=== PATIENT | female | born 1945 | race Caucasian/White ===

== ENCOUNTER → 2018-10-17 | Outpatient (CLI) | payer MEDICARE ==
[2018-10-17 16:47] LABS: ABSOLUTE BASOPHILS # (AUTO) 0.1 10^3/uL (0.0-0.2); ABSOLUTE EOSINOPHILS # (AUTO) 0.1 10^3/uL (0.0-0.6); ABSOLUTE MONOCYTES (AUTO) 0.4 10^3/uL (0.1-1.4); ABSOLUTE NEUT (AUTO) 3.1 10^3/uL (1.7-8.2); BASOPHILS % (AUTO) 1.2 % (0-2); EOSINOPHILS % (AUTO) 2.6 % (0-6); HEMATOCRIT 40.2 % (36.0-47.0); HEMOGLOBIN 13.7 g/dL (12.0-15.5); LYMPHOCYTES % (AUTO) 21.5 % (13-45); MEAN CORPUSCULAR HEMOGLOBIN 27.6 pg (27.0-33.4); MEAN CORPUSCULAR HGB CONC 34.1 g/dL (32.0-36.0); MEAN CORPUSCULAR VOLUME 81 fl (80-97); MONOCYTES % (AUTO) 7.6 % (3-13); PLATELET COUNT 132 10^3/uL (150-450); RED BLOOD COUNT 4.97 10^6/uL (3.72-5.28); RED CELL DISTRIBUTION WIDTH 14.4 % (11.5-14.0); SEGMENTED NEUTROPHILS % (AUTO) 67.1 % (42-78); TOTAL CELLS COUNTED % (AUTO) 100 %; WHITE BLOOD COUNT 4.7 10^3/uL (4.0-10.5)
--- NOTE | 2018-10-17 17:10 | RADIOLOGY REPORT (SQ) ---
EXAM DESCRIPTION: CHEST PA/LATERAL COMPLETED DATE/TIME: 10/17/2018 4:05 pm REASON FOR STUDY: PRE-OP COMPARISON: None. EXAM PARAMETERS: NUMBER OF VIEWS: two views TECHNIQUE: Digital Frontal and Lateral radiographic views of the chest acquired. RADIATION DOSE: NA LIMITATIONS: none FINDINGS: LUNGS AND PLEURA: No opacities, masses or pneumothorax. No pleural effusion. MEDIASTINUM AND HILAR STRUCTURES: No masses or contour abnormalities. HEART AND VASCULAR STRUCTURES: Borderline cardiomegaly BONES: No acute findings. HARDWARE: None in the chest. OTHER: No other significant finding. IMPRESSION: NO SIGNIFICANT RADIOGRAPHIC FINDING IN THE CHEST. TECHNICAL DOCUMENTATION: JOB ID: [id number] [employer]- All Rights Reserved Reading location - IP/workstation name: [email or web address]
[2018-10-17 17:14] LABS: ANION GAP 5 (5-19); BLOOD UREA NITROGEN 23 mg/dL (7-20); CALCIUM 8.9 mg/dL (8.4-10.2); CARBON DIOXIDE 35 mmol/L (22-30); CHLORIDE 101 mmol/L (98-107); GLUCOSE 95 mg/dL (75-110); POTASSIUM 3.8 mmol/L (3.6-5.0); SODIUM 141.2 mmol/L (137-145)
--- NOTE | 2018-10-17 18:40 | EKG REPORT ---
SEVERITY:- ABNORMAL ECG - SINUS RHYTHM ATRIAL PREMATURE COMPLEX RBBB AND LAFB LEFT VENTRICULAR HYPERTROPHY : Confirmed by: Eduardo Mora MD 17-Oct-2018 18:40:40
[2018-10-18 11:57] LABS: APPEARANCE,URINE SLIGHTLY-CLOUDY; BILIRUBIN,URINE NEGATIVE (NEGATIVE); COLOR,URINE YELLOW; GLUCOSE, URINE NEGATIVE (NEGATIVE); KETONES,URINE NEGATIVE (NEGATIVE); LEUKOCYTE ESTERASE,URINE MODERATE (NEGATIVE); NITRITE,URINE NEGATIVE (NEGATIVE); PROTEIN,URINE NEGATIVE (NEGATIVE); URINE SPECIFIC GRAVITY 1.026; UROBILINOGEN,URINE NEGATIVE mg/dL (<2.0)
== END ==
LOC: OD 15:13
PROVIDERS: ATTEND Orthopaedic Surgery
DX: Z01.810 Encounter for preprocedural cardiovascular examination (principal); Z01.811 Encounter for preprocedural respiratory examination; Z01.812 Encounter for preprocedural laboratory examination; M17.11 Unilateral primary osteoarthritis, right knee
CPT/HCPCS: 36415; 71046; 80048; 81001; 85025; 93005; 93010

== ENCOUNTER 2018-11-14 09:37 | Inpatient (IN) | payer MEDICARE ==
[2018-11-28] MEDS ORDERED: LIDOCAINE 0.5% INJ-PF (5 MG/ML) 50 ML SDV SUBCUT PRN (05:00)
[2018-11-28] MEDS ORDERED: OXYCODONE HCL SR 10 MG TABLET PO PRN (05:00)
[2018-11-28] MEDS ORDERED: IBUPROFEN 800 MG in NORMAL SALINE 250 ML IV PRN (05:00)
[2018-11-28] MEDS ORDERED: BUPIVACAINE INJ/PF LIPOSOME/PF 266 MG/20 ML SDV INJ PRN (05:00)
[2018-11-28] MEDS ORDERED: CLINDAMYCIN 600 MG/D5W RTU 600 MG/50 ML RTUPB IV PRN (05:00)
[2018-11-28] MEDS ORDERED: CEFAZOLIN INJ 1 GM VIAL IV PRN (05:00)
[2018-11-28] MEDS ORDERED: PANTOPRAZOLE SODIUM 20 MG TABLET.DR PO PRN (05:00)
[2018-11-28] MEDS ORDERED: VANCOMYCIN HCL 1,000 MG in DEXTROSE 5%-WATER 250 ML IV PRN (05:00)
[2018-11-28] MEDS ORDERED: LACTATED RINGERS 1000 ML IV PRN (05:00)
[2018-11-28] MEDS ORDERED: PANTOPRAZOLE SODIUM 20 MG TABLET.DR PO ONE (05:10)
[2018-11-28] MEDS ORDERED: CEFAZOLIN INJ 1 GM VIAL ONE (05:11)
[2018-11-28] MEDS ORDERED: OXYCODONE HCL SR 10 MG TABLET PO ONE (05:11)
[2018-11-28] MEDS ORDERED: CLINDAMYCIN 600 MG/D5W RTU 600 MG/50 ML RTUPB IV ONE (05:54)
[2018-11-28] MEDS ORDERED: MIDAZOLAM 2 MG/2 ML INJ ONE (06:35)
[2018-11-28] MEDS ORDERED: PROPOFOL INJ 200 MG/20 ML VIAL IV ONE (06:35)
[2018-11-28] MEDS ORDERED: EPHEDRINE SULFATE INJ 50 MG/1 ML AMPULE ONE (06:36)
[2018-11-28] MEDS ORDERED: LIDOCAINE 2% INJ-PF (100 MG/5 ML) SYRINGE ONE (06:48)
[2018-11-28] MEDS ORDERED: LIDOCAINE 2% INJ (20 MG/ML) 20 ML MDV ONE (06:52)
[2018-11-28] MEDS ORDERED: BUPIVACAINE HCL 0.5%-EPI 1:200000 INJ/PF 30 ML VIAL ONE (07:07)
[2018-11-28] MEDS ORDERED: THROMBIN (BOVINE) TOPICAL 5000 UNIT VIAL ONE (07:07)
[2018-11-28] MEDS ORDERED: TRANEXAMIC ACID INJ/PF 1,000 MG/10 ML SDV IV ONE ×3 (07:57→11:00)
[2018-11-28] MEDS ORDERED: FENTANYL CITRATE INJ/PF 100 MCG/2 ML AMPUL IV PRN ×3 (08:09)
[2018-11-28] MEDS ORDERED: DIPHENHYDRAMINE HCL 50 MG/ML VIAL IV PRN ×2 (08:09→08:40)
[2018-11-28] MEDS ORDERED: PROMETHAZINE HCL INJ 25 MG/1 ML VIAL IV PRN ×2 (08:09)
--- NOTE | 2018-11-28 08:38 | Operative Report ---
Operative Report DATE OF SURGERY: 11/28/18 PREOPERATIVE DIAGNOSIS: Right knee arthritis OPERATION: Right knee arthroplasty SURGEON: PUSHPA MICHAEL ANESTHESIA: Spinal TISSUE REMOVED OR ALTERED: Bone to pathology ESTIMATED BLOOD LOSS: 75 PROCEDURE: Implants used: Femur: [place] triathlon size 5 CR femur Tibia: 5 tibia Tibial liner: 11 mm CS insert Patella: 32 mm oval patella Procedure with the patient supine on the operating table the right the limb is prepped and draped in a sterile fashion. The limb was elevated for exsanguination and the tourniquet inflated to 280 torr. A standard midline median parapatellar approach the knee is taken. Access is gained to the femoral canal through the intercondylar notch. Intramedullary alignment instrumentation used to resect 10 mm of distal femur in 5 of valgus. Sizing guide indicated a size 5 femur. Appropriate cutting jig is then used to fashion anterior posterior and chamfer cuts. A trial reduction femurs performed and this is judged to be adequate. Attention was next turned to the tibia. Using an extra medullary alignment system 11 millimeters was resected off the lateral tibial plateau to make up for a medial defect. This is sized to a size 5 tibia. A trial reduction was now performed with a 5 femur and a 5 tibia using a 11 millimeters spacer. It is full extension and central patellofemoral tracking. The articular surface the patella was next resected using an oscillating saw. All trial implants were removed. Polymethylmethacrylate is mixed and used to cement the above implants in place. On adequate curing the cement excess cement was removed the tourniquet was deflated hemostasis obtained the wound is then closed in layers using interrupted Vicryl followed by kimberli. A sterile comp ressive dressing was applied and the patient returned to recovery room in satisfactory condition.
[2018-11-28] MEDS ORDERED: ZOLPIDEM TARTRATE 5 MG TABLET PO PRN (08:40)
[2018-11-28] MEDS ORDERED: ONDANSETRON HCL INJ/PF 4 MG/2 ML SDV IV PRN (08:40)
[2018-11-28] MEDS ORDERED: ONDANSETRON 4 MG TAB.RAPDIS PO PRN (08:40)
[2018-11-28] MEDS ORDERED: MAG HYDROX/AL HYDROX/SIMETH SUSP 30 ML UDCUP PO PRN (08:40)
[2018-11-28] MEDS ORDERED: RINGERS SOLUTION,LACTATED 1,000 ML IV PRN (08:40)
[2018-11-28] MEDS ORDERED: ACETAMINOPHEN 325 MG TABLET PO PRN (08:40)
[2018-11-28] MEDS ORDERED: MORPHINE SULFATE 10 MG/ML INJ IV PRN (08:40)
--- NOTE | 2018-11-28 09:39 | RADIOLOGY REPORT (SQ) ---
EXAM DESCRIPTION: KNEE RIGHT 2 VIEWS COMPLETED DATE/TIME: 11/28/2018 9:19 am REASON FOR STUDY: Post OP -Long Cassette in PACU M17.11 UNILATERAL PRIMARY OSTEOARTHRITIS, RIGHT KN EE COMPARISON: None. NUMBER OF VIEWS: Two view(s). TECHNIQUE: Digital radiographic images of the right knee post-procedure. LIMITATIONS: None. FINDINGS: BONES: No worrisome or unexpected findings post-procedure. DEVICE: Total knee arthroplasty SOFT TISSUES: No worrisome findings. Expected postoperative soft tissue changes. IMPRESSION: SATISFACTORY POSTOPERATIVE RIGHT KNEE. TECHNICAL DOCUMENTATION: JOB ID: [id number] [employer]- All Rights Reserved Reading location - IP/workstation name: [email or web address]
[2018-11-28] MEDS ORDERED: ROPINIROLE HCL 1 MG PO SCH (10:00)
[2018-11-28] MEDS ORDERED: FUROSEMIDE 20 MG TABLET PO PRN (10:00)
[2018-11-28] MEDS ORDERED: OXYBUTYNIN CHLORIDE 5 MG PO SCH (10:00)
[2018-11-28] MEDS: IBUPROFEN 800 MG in NORMAL SALINE 250 ML IV SCH ×2 (11:26→18:00)
[2018-11-28] MEDS: OXYCODONE HCL IR 5 MG TABLET PO PRN ×2 (11:58→17:59)
[2018-11-28] MEDS: GABAPENTIN 300 MG CAPSULE PO SCH ×4 (13:01→21:54)
[2018-11-28] MEDS: OXYCODONE HCL SR 10 MG TABLET PO SCH ×2 (13:01→21:54)
[2018-11-28] MEDS: SENNOSIDES/DOCUSATE 8.6-50 MG 1 EACH TABLET PO SCH ×3 (13:02→18:09)
[2018-11-28] MEDS: ASPIRIN 81 MG TABLET, CHEWABLE PO SCH (13:12)
[2018-11-28] MEDS: METOPROLOL SUCCINATE 50 MG TAB.SR.24H PO SCH (13:13)
[2018-11-28] MEDS: PRENATAL VITAMIN W DHA CAPSULE PO SCH (13:13)
[2018-11-28] MEDS: BENAZEPRIL HCL 20 MG TABLET PO SCH (13:13)
[2018-11-28] MEDS: AMLODIPINE BESYLATE 10 MG TABLET PO SCH (13:14)
[2018-11-28] MEDS: ROPINIROLE HCL 1 MG TABLET PO SCH ×3 (13:28→21:54)
[2018-11-28] MEDS: MORPHINE SULFATE 10 MG/ML INJ IV PRN (20:03)
[2018-11-28] MEDS: ATORVASTATIN CALCIUM 20 MG TABLET PO SCH (21:54)
[2018-11-28] MEDS: TRAZODONE HCL 50 MG TABLET PO SCH (21:54)
[2018-11-28] MEDS ORDERED: OXYBUTYNIN CHLORIDE 5 MG TABLET PO SCH (22:00)
[2018-11-29] MEDS: IBUPROFEN 800 MG in NORMAL SALINE 250 ML IV SCH ×3 (01:46→19:02)
[2018-11-29] MEDS: ROPINIROLE HCL 1 MG TABLET PO SCH ×6 (01:47→22:48)
[2018-11-29] MEDS: MORPHINE SULFATE 10 MG/ML INJ IV PRN (01:47)
[2018-11-29 05:51] LABS: HEMATOCRIT 37.4 % (36.0-47.0); HEMOGLOBIN 12.4 g/dL (12.0-15.5); MEAN CORPUSCULAR HEMOGLOBIN 27.6 pg (27.0-33.4); MEAN CORPUSCULAR HGB CONC 33.2 g/dL (32.0-36.0); MEAN CORPUSCULAR VOLUME 83 fl (80-97); PLATELET COUNT 114 10^3/uL (150-450); RED BLOOD COUNT 4.52 10^6/uL (3.72-5.28)
[2018-11-29 06:16] LABS: ANION GAP 9 (5-19); BLOOD UREA NITROGEN 19 mg/dL (7-20); CALCIUM 8.5 mg/dL (8.4-10.2); CARBON DIOXIDE 26 mmol/L (22-30); CHLORIDE 104 mmol/L (98-107); GLUCOSE 142 mg/dL (75-110); POTASSIUM 4.6 mmol/L (3.6-5.0); SODIUM 138.9 mmol/L (137-145)
[2018-11-29] MEDS: PANTOPRAZOLE SODIUM 40 MG TABLET.DR PO SCH (07:31)
--- NOTE | 2018-11-29 07:45 | PDOC DISCHARGE SUMMARY ---
General - Admit/Disc Date/PCP Admission Date/Primary Care Provider: 11/28/18 05:37 TOBY RITCHIE MD Discharge Date: 11/29/18 - Discharge Diagnosis (1) Primary osteoarthritis of right knee Is this a current diagnosis for this admission?: Yes - Additional Information Resuscitation Status: Full Code Home Medications: Amlodipine Besylate [Norvasc 10 mg Tablet] 10 mg PO QAM 11/28/18 Aspirin [Adult Low Dose Aspirin EC] 81 mg PO QAM 11/28/18 Atorvastatin Calcium [Lipitor 20 mg Tablet] 20 mg PO QPM 11/28/18 Benazepril HCl [Lotensin 20 mg Tablet] 40 mg PO DAILY 11/28/18 Ergocalciferol (Vitamin D2) [Drisdol 50,000 unit (1.25MG) Capsule] 50,000 unit PO SA 11/28/18 Furosemide [Lasix 20 mg Tablet] 20 mg PO DAILYP PRN 11/28/18 Gabapentin [Neurontin 300 mg Capsule] 300 mg PO Q6 11/28/18 Hydrocodone/Acetaminophen [[place] 7.5-325 Tablet] 1 tab PO Q4HP PRN 11/28/18 Meloxicam [Mobic] 15 mg PO QPM 11/28/18 Metoprolol Succinate [Toprol Xl 50 mg Tab.sr] 50 mg PO QAM 11/28/18 Oxybutynin Chloride [Ditropan Xl] 5 mg PO QAM 11/28/18 Ropinirole HCl [Requip] 1 mg PO Q4 11/28/18 Trazodone HCl [Desyrel] 150 mg PO QPM 11/28/18 Ubidecarenone/Vit E Acet [Co Q-10 100 mg Softgel] 1 cap PO DAILY 11/28/18 History of Present Illness History of Present Illness: NICHO CEJA is a 73 year old female progressive R knee apin and functional disability secondary to OA Hospital Course Hospital Course: admitted thru OR, excellent progress with PT on POD#0 Physical Exam Vital Signs: Temp Pulse Resp BP Pulse Ox 36.8 C 60 17 128/53 H 93 11/29/18 00:00 11/29/18 00:00 11/29/18 00:00 11/29/18 00:00 11/29/18 00:00 Intake & Output 11/28/18 11/29/1819 06:59 06:59 06:59 Intake Total 1000 2250 Output Total 50 Balance 1000 2200 General appearance: PRESENT: no acute distress Respiratory exam: PRESENT: unlabored Cardiovascular exam: PRESENT: RRR Pulses: PRESENT: +1 pedal pulses bilateral Vascular exam: PRESENT: normal capillary refill Extremities exam: PRESENT: other - R knee op site clean and dry Neurological exam: PRESENT: alert, awake, oriented to person, oriented to place, oriented to time, oriented to situation, CN II-XII grossly intact. ABSENT: motor sensory deficit Psychiatric exam: PRESENT: appropriate affect, normal mood. ABSENT: homicidal ideation, suicidal ideation Skin exam: PRESENT: dry, intact, warm. ABSENT: cyanosis, rash Results Laboratory Results: 11/29/18 04:26 11/29/18 04:26 11/29/18 11/29/18 04:26 04:26 WBC 8.0 RBC 4.52 Hgb 12.4 Hct 37.4 MCV 83 MCH 27.6 MCHC 33.2 RDW 15.0 H Plt Count 114 L Sodium 138.9 Potassium 4.6 Chloride 104 Carbon Dioxide 26 Anion Gap 9 BUN 19 Creatinine 0.88 Est GFR ( Amer) > 60 Est GFR (Non-Af Amer) > 60 Glucose 142 H Calcium 8.5 Impressions: Knee X-Ray 11/28/18 08:41 IMPRESSION: SATISFACTORY POSTOPERATIVE RIGHT KNEE. Status: Imported from PACS Qualifiers - * PATIENT BEING DISCHARGED WITH ANY OF THE FOLLOWING DIAGNOSIS: No VTE patient discharged on overlapping Therapy?: Yes Acute Heart Failure Is this a Heart Failure Patient?: No Plan Discharge Plan: D/c with Home health services and DME. F/U with Dr Yepez in 2 wks Time Spent: Less than 30 Minutes
[2018-11-29] MEDS: SENNOSIDES/DOCUSATE 8.6-50 MG 1 EACH TABLET PO SCH ×2 (10:53→17:44)
[2018-11-29] MEDS: BENAZEPRIL HCL 20 MG TABLET PO SCH (10:54)
[2018-11-29] MEDS: AMLODIPINE BESYLATE 10 MG TABLET PO SCH (10:55)
[2018-11-29] MEDS: METOPROLOL SUCCINATE 50 MG TAB.SR.24H PO SCH (11:05)
[2018-11-29] MEDS ORDERED: NALOXONE HCL INJ/PF 0.4 MG/1 ML SDV IV ONE (11:45)
[2018-11-29] MEDS: PRENATAL VITAMIN W DHA CAPSULE PO SCH (11:53)
[2018-11-29] MEDS: GABAPENTIN 300 MG CAPSULE PO SCH ×4 (11:53→22:46)
[2018-11-29] MEDS: ASPIRIN 81 MG TABLET, CHEWABLE PO SCH (11:53)
[2018-11-29] MEDS: ATORVASTATIN CALCIUM 20 MG TABLET PO SCH (22:46)
[2018-11-29] MEDS: TRAZODONE HCL 50 MG TABLET PO SCH (22:48)
[2018-11-30] MEDS: ROPINIROLE HCL 1 MG TABLET PO SCH ×3 (03:17→09:48)
[2018-11-30] MEDS: PANTOPRAZOLE SODIUM 40 MG TABLET.DR PO SCH (05:18)
[2018-11-30] MEDS: IBUPROFEN 800 MG in NORMAL SALINE 250 ML IV SCH (05:18)
[2018-11-30 05:36] LABS: HEMATOCRIT 36.3 % (36.0-47.0); MEAN CORPUSCULAR HEMOGLOBIN 27.4 pg (27.0-33.4); MEAN CORPUSCULAR HGB CONC 33.1 g/dL (32.0-36.0); MEAN CORPUSCULAR VOLUME 83 fl (80-97); PLATELET COUNT 104 10^3/uL (150-450); RED BLOOD COUNT 4.38 10^6/uL (3.72-5.28); RED CELL DISTRIBUTION WIDTH 14.8 % (11.5-14.0); WHITE BLOOD COUNT 6.4 10^3/uL (4.0-10.5)
[2018-11-30] MEDS: METOPROLOL SUCCINATE 50 MG TAB.SR.24H PO SCH (09:50)
[2018-11-30] MEDS: ASPIRIN 81 MG TABLET, CHEWABLE PO SCH (09:50)
[2018-11-30] MEDS: PRENATAL VITAMIN W DHA CAPSULE PO SCH (09:50)
[2018-11-30] MEDS: BENAZEPRIL HCL 20 MG TABLET PO SCH (09:50)
[2018-11-30] MEDS: AMLODIPINE BESYLATE 10 MG TABLET PO SCH (09:50)
[2018-11-30] MEDS: SENNOSIDES/DOCUSATE 8.6-50 MG 1 EACH TABLET PO SCH (09:51)
[2018-11-30] MEDS: GABAPENTIN 300 MG CAPSULE PO SCH (09:51)
[2018-11-30 11:02] VITALS: BP 128/53
== END 2018-11-30 11:24 | disposition home health service (06) | DRG 470 ==
LOC: INOR 11-28 05:37 → 4W 11-28 09:44 → 4S 11-28 18:31
PROVIDERS: ADMIT Orthopaedic Surgery; ATTEND Orthopaedic Surgery
PROC: 0SRC0J9 Replacement of Right Knee Joint with Synthetic Substitute, Cemented, Open Approach (ICD-10-PCS; principal; 2018-11-28 07:30)
DX: M17.11 Unilateral primary osteoarthritis, right knee (principal); I10 Essential (primary) hypertension; Z79.899 Other long term (current) drug therapy; Z88.1 Allergy status to other antibiotic agents; Z91.018 Allergy to other foods; Z79.82 Long term (current) use of aspirin; Z79.891 Long term (current) use of opiate analgesic
CPT/HCPCS: 01402; 36415; 80048; 85027; 88305; 88311; 94799; C1713; C1776; J0690; J1741; J2001; J2250; J2270; J2310; J2704; J3370; J3490; J7050; J7060

== ENCOUNTER → 2018-11-22 | Outpatient (CLI) | payer MEDICARE ==
[2018-11-22 11:00] LABS: ABSOLUTE BASOPHILS # (AUTO) 0.1 10^3/uL (0.0-0.2); ABSOLUTE EOSINOPHILS # (AUTO) 0.1 10^3/uL (0.0-0.6); ABSOLUTE LYMPHOCYTES (AUTO) 1.1 10^3/uL (0.5-4.7); ABSOLUTE MONOCYTES (AUTO) 0.5 10^3/uL (0.1-1.4); ABSOLUTE NEUT (AUTO) 4.1 10^3/uL (1.7-8.2); BASOPHILS % (AUTO) 0.9 % (0-2); EOSINOPHILS % (AUTO) 2.2 % (0-6); HEMATOCRIT 43.4 % (36.0-47.0); HEMOGLOBIN 14.4 g/dL (12.0-15.5); LYMPHOCYTES % (AUTO) 18.8 % (13-45); MEAN CORPUSCULAR HEMOGLOBIN 27.1 pg (27.0-33.4); MEAN CORPUSCULAR HGB CONC 33.2 g/dL (32.0-36.0); MEAN CORPUSCULAR VOLUME 82 fl (80-97); MONOCYTES % (AUTO) 7.7 % (3-13); PLATELET COUNT 137 10^3/uL (150-450); RED BLOOD COUNT 5.31 10^6/uL (3.72-5.28); RED CELL DISTRIBUTION WIDTH 14.9 % (11.5-14.0); SEGMENTED NEUTROPHILS % (AUTO) 70.4 % (42-78); TOTAL CELLS COUNTED % (AUTO) 100 %; WHITE BLOOD COUNT 5.8 10^3/uL (4.0-10.5)
[2018-11-22 11:03] LABS: APPEARANCE,URINE SLIGHTLY-CLOUDY; BILIRUBIN,URINE NEGATIVE (NEGATIVE); COLOR,URINE YELLOW; GLUCOSE, URINE NEGATIVE (NEGATIVE); KETONES,URINE NEGATIVE (NEGATIVE); LEUKOCYTE ESTERASE,URINE MODERATE (NEGATIVE); NITRITE,URINE NEGATIVE (NEGATIVE); PROTEIN,URINE NEGATIVE (NEGATIVE); UROBILINOGEN,URINE NEGATIVE mg/dL (<2.0)
[2018-11-22 11:28] LABS: ANION GAP 10 (5-19); BLOOD UREA NITROGEN 14 mg/dL (7-20); CALCIUM 9.1 mg/dL (8.4-10.2); CARBON DIOXIDE 31 mmol/L (22-30); CHLORIDE 103 mmol/L (98-107); GLUCOSE 105 mg/dL (75-110); POTASSIUM 4.2 mmol/L (3.6-5.0); SODIUM 143.5 mmol/L (137-145)
== END ==
LOC: OD 10:16
PROVIDERS: ATTEND Orthopaedic Surgery
DX: M17.11 Unilateral primary osteoarthritis, right knee (principal); Z01.812 Encounter for preprocedural laboratory examination; Z01.810 Encounter for preprocedural cardiovascular examination
CPT/HCPCS: 36415; 80048; 81001; 85025

== ENCOUNTER → 2019-01-31 | Outpatient (CLI) | payer MEDICARE ==
[2019-01-31 15:46] LABS: ABSOLUTE BASOPHILS # (AUTO) 0.1 10^3/uL (0.0-0.2); ABSOLUTE EOSINOPHILS # (AUTO) 0.2 10^3/uL (0.0-0.6); ABSOLUTE LYMPHOCYTES (AUTO) 1.1 10^3/uL (0.5-4.7); ABSOLUTE MONOCYTES (AUTO) 0.4 10^3/uL (0.1-1.4); EOSINOPHILS % (AUTO) 2.8 % (0-6); HEMOGLOBIN 13.5 g/dL (12.0-15.5); LYMPHOCYTES % (AUTO) 19.5 % (13-45); MEAN CORPUSCULAR HEMOGLOBIN 27.1 pg (27.0-33.4); MEAN CORPUSCULAR VOLUME 82 fl (80-97); MONOCYTES % (AUTO) 7.7 % (3-13); PLATELET COUNT 148 10^3/uL (150-450); RED CELL DISTRIBUTION WIDTH 14.8 % (11.5-14.0); TOTAL CELLS COUNTED % (AUTO) 100 %; WHITE BLOOD COUNT 5.7 10^3/uL (4.0-10.5)
[2019-01-31 15:51] LABS: APPEARANCE,URINE CLOUDY; BILIRUBIN,URINE SMALL (NEGATIVE); GLUCOSE, URINE NEGATIVE (NEGATIVE); KETONES,URINE TRACE mg/dL (NEGATIVE); LEUKOCYTE ESTERASE,URINE MODERATE (NEGATIVE); NITRITE,URINE NEGATIVE (NEGATIVE); PROTEIN,URINE 30 mg/dL (NEGATIVE); URINE SPECIFIC GRAVITY 1.036
[2019-01-31 16:07] LABS: ANION GAP 6 (5-19); BLOOD UREA NITROGEN 20 mg/dL (7-20); CALCIUM 8.9 mg/dL (8.4-10.2); CARBON DIOXIDE 34 mmol/L (22-30); CHLORIDE 104 mmol/L (98-107); GLUCOSE 87 mg/dL (75-110); POTASSIUM 4.7 mmol/L (3.6-5.0)
[2019-01-31 16:12] LABS: ADD MANUAL MICROSCOPIC YES; BACTERIA,URINE TRACE /HPF; COLOR,URINE YELLOW
--- NOTE | 2019-01-31 17:53 | EKG REPORT ---
SEVERITY:- ABNORMAL ECG - SINUS RHYTHM RIGHT BUNDLE BRANCH BLOCK +LAFB LEFT VENTRICULAR HYPERTROPHY ANTERIOR Q WAVES, POSSIBLY DUE TO LVH : Confirmed by: Eduardo Mora MD 31-Jan-2019 17:52:23
== END ==
LOC: OD 14:11
PROVIDERS: ATTEND Orthopaedic Surgery
DX: Z01.810 Encounter for preprocedural cardiovascular examination (principal); Z01.811 Encounter for preprocedural respiratory examination; Z01.812 Encounter for preprocedural laboratory examination; M17.12 Unilateral primary osteoarthritis, left knee
CPT/HCPCS: 36415; 80048; 81001; 85025; 93005; 93010

== ENCOUNTER → 2019-02-05 | Outpatient (CLI) | payer MEDICARE ==
--- NOTE | 2019-02-05 12:46 | RADIOLOGY REPORT (SQ) ---
EXAM DESCRIPTION: CHEST PA/LATERAL COMPLETED DATE/TIME: 02/05/2019 12:34 pm REASON FOR STUDY: PRE-OP COMPARISON: 10/17/2018 EXAM PARAMETERS: NUMBER OF VIEWS: two views TECHNIQUE: Digital Frontal and Lateral radiographic views of the chest acquired. RADIATION DOSE: NA LIMITATIONS: none FINDINGS: LUNGS AND PLEURA: No opacities, masses or pneumothorax. No pleural effusion. MEDIASTINUM AND HILAR STRUCTURES: No masses or contour abnormalities. HEART AND VASCULAR STRUCTURES: Heart normal size. No evidence for failure. BONES: No acute findings. HARDWARE: None in the chest. OTHER: No other significant finding. IMPRESSION: NO SIGNIFICANT RADIOGRAPHIC FINDING IN THE CHEST. TECHNICAL DOCUMENTATION: JOB ID: [id number] [employer]- All Rights Reserved Reading location - IP/workstation name: [email or web address]
== END ==
LOC: OD 12:18
PROVIDERS: ATTEND Orthopaedic Surgery
DX: Z01.810 Encounter for preprocedural cardiovascular examination (principal); Z01.811 Encounter for preprocedural respiratory examination; Z01.812 Encounter for preprocedural laboratory examination; M17.12 Unilateral primary osteoarthritis, left knee
CPT/HCPCS: 71046

== ENCOUNTER 2019-02-11 06:01 | Inpatient (IN) | payer MEDICARE ==
[~2019-02-11 06:01] MED LIST: BUPIVACAINE INJ/PF LIPOSOME/PF 266 MG/20 ML SDV INJ PRN; CLINDAMYCIN 600 MG/D5W RTU 600 MG/50 ML RTUPB IV PRN; IBUPROFEN 800 MG in NORMAL SALINE 250 ML IV PRN; LACTATED RINGERS 1000 ML IV PRN; LIDOCAINE 0.5% INJ-PF (5 MG/ML) 50 ML SDV SUBCUT PRN; OXYCODONE HCL SR 10 MG TABLET PO PRN; PANTOPRAZOLE SODIUM 20 MG TABLET.DR PO PRN; VANCOMYCIN HCL 1,000 MG in DEXTROSE 5%-WATER 250 ML IV PRN
[2019-02-11] MEDS ORDERED: MIDAZOLAM 2 MG/2 ML INJ ONE (06:59)
[2019-02-11] MEDS ORDERED: ONDANSETRON HCL INJ/PF 4 MG/2 ML SDV ONE (06:59)
[2019-02-11] MEDS ORDERED: FENTANYL CITRATE INJ/PF 100 MCG/2 ML AMPUL ONE (06:59)
[2019-02-11] MEDS ORDERED: PROPOFOL INJ 200 MG/20 ML VIAL IV ONE (07:00)
[2019-02-11] MEDS ORDERED: TRANEXAMIC ACID INJ/PF 1,000 MG/10 ML SDV IV ONE ×4 (07:00→16:00)
[2019-02-11] MEDS ORDERED: OXYCODONE HCL SR 10 MG TABLET PO ONE (09:53)
[2019-02-11] MEDS ORDERED: PANTOPRAZOLE SODIUM 20 MG TABLET.DR PO ONE (09:53)
[2019-02-11] MEDS ORDERED: BUPIVACAINE HCL 0.25% /EPINEPHRINE INJ/PF 30 ML SDV ONE (10:52)
[2019-02-11] MEDS ORDERED: CLINDAMYCIN 600 MG/D5W RTU 600 MG/50 ML RTUPB IV ONE (11:58)
[2019-02-11] MEDS ORDERED: MEPERIDINE HCL/PF INJ 25 MG/1 ML DISP.SYRIN IV PRN (12:46)
[2019-02-11] MEDS ORDERED: FENTANYL CITRATE INJ/PF 100 MCG/2 ML AMPUL IV PRN ×3 (12:46)
[2019-02-11] MEDS ORDERED: DIPHENHYDRAMINE HCL 50 MG/ML VIAL IV PRN ×2 (12:46→13:27)
[2019-02-11] MEDS ORDERED: ONDANSETRON HCL INJ/PF 4 MG/2 ML SDV IV PRN ×2 (12:46→13:27)
[2019-02-11] MEDS ORDERED: OXYCODONE-ACETAMINOPHEN 5-325 MG TABLET PO PRN ×2 (12:46)
[2019-02-11] MEDS ORDERED: FUROSEMIDE 20 MG TABLET PO PRN (13:26)
[2019-02-11] MEDS ORDERED: ACETAMINOPHEN 325 MG TABLET PO PRN (13:27)
[2019-02-11] MEDS ORDERED: ONDANSETRON 4 MG TAB.RAPDIS PO PRN (13:27)
[2019-02-11] MEDS ORDERED: MAG HYDROX/AL HYDROX/SIMETH SUSP 30 ML UDCUP PO PRN (13:27)
[2019-02-11] MEDS ORDERED: ZOLPIDEM TARTRATE 5 MG TABLET PO PRN (13:27)
--- NOTE | 2019-02-11 13:33 | Operative Report ---
Operative Report DATE OF SURGERY: 02/11/19 PREOPERATIVE DIAGNOSIS: Left knee arthritis OPERATION: Left knee arthroplasty SURGEON: PUSHPA MICHAEL ANESTHESIA: Spinal TISSUE REMOVED OR ALTERED: Bone to pathology ESTIMATED BLOOD LOSS: 75 PROCEDURE: Implants used: Femur: [place] triathlon size 5 CR femur Tibia: 5 tibia Tibial liner: 11 Millimeters CS insert Patella: 32 mm oval patella Procedure with the patient supine on the operating table the left the limb is prepped and draped in a sterile fashion. The limb was elevated for exsanguination and the tourniquet inflated to 280 torr. A standard midline median parapatellar approach the knee is taken. Access is gained to the femoral canal through the intercondylar notch. Intramedullary alignment instrumentation used to resect 10 mm of distal femur in 5 of valgus. Sizing guide indicated a size 5 femur. Appropriate cutting jig is then used to fashion anterior posterior and chamfer cuts. A trial reduction femurs performed and this is judged to be adequate. Attention was next turned to the tibia. Using an extra medullary alignment system 9 millimeters was resected off the lateral tibial plateau. This is sized to a size 5 tibia. A trial reduction was now performed with a 5 femur and a 5 tibia using a 11 millimeters spacer. It is full extension and central patellofemoral tracking. The articular surface the patella was next resected using an oscillating saw. All trial implants were removed. Polymethylmethacrylate is mixed and used to cement the above implants in place. On adequate curing the cement excess cement was removed the tourniquet was deflated hemostasis obtained the wound is then closed in layers using interrupted Vicryl followed by kimberli. A sterile compressive dressing was applied and the patient returned to recovery room in satisfactory condition.
[2019-02-11] MEDS ORDERED: (PENDING PHARMACY ID) (Ropinirole Hcl [Requip] 1 MG) PO SCH (14:00)
--- NOTE | 2019-02-11 14:49 | RADIOLOGY REPORT (SQ) ---
EXAM DESCRIPTION: KNEE LEFT 2 VIEWS COMPLETED DATE/TIME: 02/11/2019 2:30 pm REASON FOR STUDY: Post OP -Long Cassette in PACU M17.12 UNILATERAL PRIMARY OSTEOARTHRITIS, LEFT KNE E COMPARISON: None. NUMBER OF VIEWS: Two views. TECHNIQUE: AP and lateral radiographic images acquired of the left knee. LIMITATIONS: None. FINDINGS: Postoperative imaging demonstrates a left total knee arthroplasty in good position. IMPRESSION: Left knee arthroplasty. Refer to operative note for further information. TECHNICAL DOCUMENTATION: JOB ID: [id number] [employer]- All Rights Reserved Reading location - IP/workstation name: [email or web address]
[2019-02-11] MEDS: RINGERS SOLUTION,LACTATED 1,000 ML IV PRN (15:15)
[2019-02-11] MEDS: OXYCODONE HCL IR 5 MG TABLET PO PRN (16:29)
[2019-02-11] MEDS: GABAPENTIN 300 MG CAPSULE PO SCH (17:21)
[2019-02-11] MEDS: SENNOSIDES/DOCUSATE 8.6-50 MG 1 EACH TABLET PO SCH (17:21)
[2019-02-11] MEDS: IBUPROFEN 800 MG in NORMAL SALINE 250 ML IV SCH (17:24)
[2019-02-11] MEDS ORDERED: (PENDING PHARMACY ID) (Trazodone Hcl [Desyrel] 150 MG) PO SCH (18:00)
[2019-02-11] MEDS ORDERED: ROPINIROLE HCL 1 MG TABLET PO SCH (18:00)
[2019-02-11] MEDS: ATORVASTATIN CALCIUM 20 MG TABLET PO SCH (21:23)
[2019-02-11] MEDS: TRAZODONE HCL 50 MG TABLET PO SCH (21:23)
[2019-02-11] MEDS: OXYBUTYNIN CHLORIDE 5 MG TABLET PO SCH (21:23)
[2019-02-11] MEDS: OXYCODONE HCL SR 10 MG TABLET PO SCH (23:14)
[2019-02-12] MEDS: GABAPENTIN 300 MG CAPSULE PO SCH ×4 (00:05→17:28)
[2019-02-12] MEDS: RINGERS SOLUTION,LACTATED 1,000 ML IV PRN (00:06)
[2019-02-12] MEDS ORDERED: VANCOMYCIN HCL 1,000 MG in DEXTROSE 5%-WATER 250 ML IV ONE (01:00)
[2019-02-12] MEDS: OXYCODONE HCL IR 5 MG TABLET PO PRN (03:04)
[2019-02-12] MEDS: IBUPROFEN 800 MG in NORMAL SALINE 250 ML IV SCH ×3 (03:04→17:28)
[2019-02-12] MEDS: PANTOPRAZOLE SODIUM 40 MG TABLET.DR PO SCH (05:33)
[2019-02-12] MEDS ORDERED: PANTOPRAZOLE SODIUM 40 MG TABLET.DR PO SCH (06:00)
--- NOTE | 2019-02-12 07:23 | PDOC PROGRESS REPORT ---
Subjective Progress Note for:: 02/12/19 Reason For Visit: LEFT KNEE ARTHRITIS 73-year-old female status post knee arthroplasty in the past now with progressive left knee pain and functional disability. Patient being admitted for elective left knee arthroplasty. Physical Exam Vital Signs: Temp Pulse Resp BP Pulse Ox 36.4 C 68 16 104/40 L 92 02/12/19 01:00 02/12/19 01:00 02/12/19 01:00 02/12/19 01:00 02/12/19 05:01 Intake & Output 02/11/19 02/12/19 02/13/19 06:59 06:59 06:59 Intake Total 7176 Output Total 3050 Balance 4126 Weight 109 kg Physical Exam: Overweight middle-aged white female lying in bed in minor distress. She is initially difficult to arouse. When she is aroused, is alert oriented and appropriate. General appearance: PRESENT: no acute distress, mild distress, obese, well- developed, well-nourished Head exam: PRESENT: normocephalic Respiratory exam: PRESENT: unlabored Cardiovascular exam: PRESENT: RRR Pulses: PRESENT: +1 pedal pulses bilateral Vascular exam: PRESENT: normal capillary refill GI/Abdominal exam: PRESENT: soft Rectal exam: PRESENT: deferred Extremities exam: PRESENT: other - Left lower extremity dressing is clean dry and intact. Distal neurovascular examination is intact. Neurological exam: PRESENT: alert, awake, oriented to person, oriented to place, oriented to time, oriented to situation. ABSENT: motor sensory deficit Psychiatric exam: PRESENT: appropriate affect, normal mood. ABSENT: homicidal ideation, suicidal ideation Skin exam: PRESENT: dry, intact, warm. ABSENT: cyanosis, rash Results Laboratory Results: 02/11/19 10:27 02/11/19 10:27 Potassium 4.6 Impressions: Knee X-Ray 02/11/19 13:29 IMPRESSION: Left knee arthroplasty. Refer to operative note for further information. Status: Imported from PACS Assessment & Plan - Diagnosis (1) Arthritis of left knee Is this a current diagnosis for this admission?: Yes Plan: He is to be mobilized with physical therapy and weightbearing as tolerated basis. Anticipate discharge home tomorrow with home health services and DME. - Time Time Spent with patient: 15-24 minutes Anticipated discharge: Home with Homehealth Within: within 24 hours - Plan Summary Plan Summary: Mobilized with physical therapy and weightbearing as tolerated basis
[2019-02-12 07:55] LABS: HEMATOCRIT 32.3 % (36.0-47.0); HEMOGLOBIN 10.7 g/dL (12.0-15.5); MEAN CORPUSCULAR HEMOGLOBIN 27.5 pg (27.0-33.4); MEAN CORPUSCULAR HGB CONC 33.2 g/dL (32.0-36.0); MEAN CORPUSCULAR VOLUME 83 fl (80-97); PLATELET COUNT 112 10^3/uL (150-450); RED BLOOD COUNT 3.89 10^6/uL (3.72-5.28); RED CELL DISTRIBUTION WIDTH 14.8 % (11.5-14.0); WHITE BLOOD COUNT 7.1 10^3/uL (4.0-10.5)
[2019-02-12] MEDS ORDERED: OXYBUTYNIN CHLORIDE 5 MG PO SCH (08:00)
[2019-02-12 08:05] LABS: ANION GAP 6 (5-19); BLOOD UREA NITROGEN 21 mg/dL (7-20); CARBON DIOXIDE 32 mmol/L (22-30); CHLORIDE 102 mmol/L (98-107); GLUCOSE 127 mg/dL (75-110); POTASSIUM 4.4 mmol/L (3.6-5.0)
[2019-02-12] MEDS: OXYCODONE HCL SR 10 MG TABLET PO SCH (09:28)
[2019-02-12] MEDS: PRENATAL VITAMIN W DHA CAPSULE PO SCH (09:29)
[2019-02-12] MEDS: SENNOSIDES/DOCUSATE 8.6-50 MG 1 EACH TABLET PO SCH ×2 (09:29→17:28)
[2019-02-12] MEDS: ASPIRIN 81 MG TABLET, ENT COATED PO SCH (09:29)
[2019-02-12] MEDS: METOPROLOL SUCCINATE 50 MG TAB.SR.24H PO SCH (09:29)
[2019-02-12] MEDS: OXYBUTYNIN CHLORIDE 5 MG TABLET PO SCH ×2 (09:32→21:26)
[2019-02-12] MEDS: AMLODIPINE BESYLATE 10 MG TABLET PO SCH (13:21)
[2019-02-12] MEDS: BENAZEPRIL HCL 20 MG TABLET PO SCH (13:21)
[2019-02-12] MEDS: TRAZODONE HCL 50 MG TABLET PO SCH (17:35)
[2019-02-12] MEDS ORDERED: NALOXONE HCL INJ/PF 0.4 MG/1 ML SDV ONE (17:48)
[2019-02-12] MEDS ORDERED: TRAMADOL HCL 50 MG TABLET PO PRN (18:21)
[2019-02-12] MEDS: ATORVASTATIN CALCIUM 20 MG TABLET PO SCH (21:26)
[2019-02-13] MEDS: GABAPENTIN 300 MG CAPSULE PO SCH ×4 (01:31→12:18)
[2019-02-13] MEDS: IBUPROFEN 800 MG in NORMAL SALINE 250 ML IV SCH ×2 (01:31→09:47)
[2019-02-13] MEDS: PANTOPRAZOLE SODIUM 40 MG TABLET.DR PO SCH (06:24)
[2019-02-13 06:40] LABS: HEMATOCRIT 28.8 % (36.0-47.0); HEMOGLOBIN 9.6 g/dL (12.0-15.5); MEAN CORPUSCULAR HEMOGLOBIN 27.4 pg (27.0-33.4); MEAN CORPUSCULAR HGB CONC 33.4 g/dL (32.0-36.0); MEAN CORPUSCULAR VOLUME 82 fl (80-97); RED BLOOD COUNT 3.51 10^6/uL (3.72-5.28); RED CELL DISTRIBUTION WIDTH 14.9 % (11.5-14.0); WHITE BLOOD COUNT 6.9 10^3/uL (4.0-10.5)
--- NOTE | 2019-02-13 07:16 | PDOC DISCHARGE SUMMARY ---
General - Admit/Disc Date/PCP Admission Date/Primary Care Provider: 02/11/19 09:39 TOBY RITCHIE MD Discharge Date: 02/13/19 - Discharge Diagnosis (1) Arthritis of left knee Is this a current diagnosis for this admission?: Yes Summary: Patient with progressive left knee pain and functional disability second osteoarthritis is admitted for elective left knee arthroplasty. - Additional Information Resuscitation Status: Full Code Discharge Diet: As Tolerated, Regular Discharge Activity: Balance Activity w/Rest, No tub bath Home Medications: Amlodipine Besylate [Norvasc 10 mg Tablet] 10 mg PO QAM 11/28/18 Aspirin [Adult Low Dose Aspirin EC] 81 mg PO QAM 11/28/18 Atorvastatin Calcium [Lipitor 20 mg Tablet] 20 mg PO QPM 11/28/18 Benazepril HCl [Lotensin 20 mg Tablet] 40 mg PO DAILY 11/28/18 Ergocalciferol (Vitamin D2) [Drisdol 50,000 unit (1.25MG) Capsule] 50,000 unit PO SA 11/28/18 Furosemide [Lasix 20 mg Tablet] 20 mg PO DAILYP PRN 11/28/18 Gabapentin [Neurontin 300 mg Capsule] 300 mg PO Q6 11/28/18 Hydrocodone/Acetaminophen [[place] 7.5-325 Tablet] 1 tab PO Q4HP PRN 11/28/18 Meloxicam [Mobic] 15 mg PO QPM 11/28/18 Metoprolol Succinate [Toprol Xl 50 mg Tab.sr] 50 mg PO QAM 11/28/18 Oxybutynin Chloride [Ditropan Xl] 5 mg PO QAM 11/28/18 Ropinirole HCl [Requip] 4 mg PO QHS 11/28/18 Trazodone HCl [Desyrel] 150 mg PO QPM 11/28/18 Ubidecarenone/Vit E Acet [Co Q-10 100 mg Softgel] 1 cap PO DAILY 11/28/18 Additional Information: Patient to be discharged on oxycodone and enteric-coated aspirin. History of Present Illness History of Present Illness: NICHO CEJA is a 74 year old female Patient is a 74-year-old white female recently status post a right knee arthro plasty now with progressive left knee pain and functional disability second osteoarthritis. Patient is admitted for elective left knee arthroplasty. Hospital Course Hospital Course: Patient is admitted through the operating where she undergoes an uncomplicated left knee arthroplasty. She is returned to floor in satisfactory condition. She makes satisfactory progress with physical therapy. On postop day 1 there appears to be some oversedation and she is treated with Narcan, cessation of narcotics and substitution of tramadol. Oxygen saturation remains in the upper 80s. The patient is alert oriented and appropriate. Physical Exam Vital Signs: Temp Pulse Resp BP Pulse Ox 36.8 C 66 20 113/63 95 02/12/19 23:39 02/12/19 23:39 02/12/19 23:39 02/12/19 23:39 02/13/19 00:09 Intake & Output 02/12/19 02/13/19 02/14/19 06:59 06:59 06:59 Intake Total 7426 2770 Output Total 3050 Balance 4376 2770 Weight 109.4 kg 113.2 kg Physical Exam: Overweight middle-aged white female lying in bed in minor if any distress. General appearance: PRESENT: no acute distress, mild distress, well-nourished Head exam: PRESENT: normocephalic Respiratory exam: PRESENT: unlabored Cardiovascular exam: PRESENT: RRR Pulses: PRESENT: +1 pedal pulses bilateral Vascular exam: PRESENT: normal capillary refill Extremities exam: PRESENT: other - Left lower extremity dressing changed on postop day 2. The underlying incision is well approximated kimberli. Is clean dry and intact without erythema. Is minimal pedal edema. Neurological exam: PRESENT: alert, awake, oriented to person, oriented to place, oriented to time, oriented to situation. ABSENT: motor sensory deficit Psychiatric exam: PRESENT: appropriate affect, normal mood. ABSENT: homicidal ideation, suicidal ideation Skin exam: PRESENT: dry, intact, warm. ABSENT: cyanosis, rash Results Laboratory Results: 02/12/19 07:25 02/12/19 02/12/19 07:25 07:25 WBC 7.1 RBC 3.89 Hgb 10.7 L Hct 32.3 L MCV 83 MCH 27.5 MCHC 33.2 RDW 14.8 H Plt Count 112 L Sodium 140.1 Potassium 4.4 Chloride 102 Carbon Dioxide 32 H Anion Gap 6 BUN 21 H Creatinine 1.35 H Est GFR ( Amer) 46 L Est GFR (Non-Af Amer) 38 L Glucose 127 H Calcium 8.0 L Impressions: Knee X-Ray 02/11/19 13:29 IMPRESSION: Left knee arthroplasty. Refer to operative note for further information. Status: Imported from PACS Qualifiers - * PATIENT BEING DISCHARGED WITH ANY OF THE FOLLOWING DIAGNOSIS: No VTE patient discharged on overlapping Therapy?: Yes Acute Heart Failure - Is this a Heart Failure Patient?: No Plan Discharge Plan: Patient be discharged home with home health services and DME. Follow-up with Dr. Lucho Green [place] for surgery in 2 weeks for staple removal. Time Spent: Less than 30 Minutes
[2019-02-13 07:38] LABS: PLATELET COUNT 92 10^3/uL (150-450)
[2019-02-13] MEDS: AMLODIPINE BESYLATE 10 MG TABLET PO SCH (09:20)
[2019-02-13] MEDS: BENAZEPRIL HCL 20 MG TABLET PO SCH (09:20)
[2019-02-13] MEDS: METOPROLOL SUCCINATE 50 MG TAB.SR.24H PO SCH (09:47)
[2019-02-13] MEDS: SENNOSIDES/DOCUSATE 8.6-50 MG 1 EACH TABLET PO SCH (09:47)
[2019-02-13] MEDS: ASPIRIN 81 MG TABLET, ENT COATED PO SCH (09:47)
[2019-02-13] MEDS: PRENATAL VITAMIN W DHA CAPSULE PO SCH (09:47)
[2019-02-13] MEDS: OXYBUTYNIN CHLORIDE 5 MG TABLET PO SCH (09:48)
[2019-02-13 12:19] VITALS: BP 110/43
[2019-02-16] MEDS ORDERED: ERGOCALCIFEROL (VITAMIN D2) 50000 UNIT (1.25 MG) CAPSULE PO SCH (10:00)
== END 2019-02-13 13:03 | disposition home health service (06) | DRG 470 ==
LOC: INOR 09:39 → 4S 14:44
PROVIDERS: ADMIT Orthopaedic Surgery; ATTEND Orthopaedic Surgery
PROC: 0SRD0J9 Replacement of Left Knee Joint with Synthetic Substitute, Cemented, Open Approach (ICD-10-PCS; principal; 2019-02-11 11:45)
DX: M17.12 Unilateral primary osteoarthritis, left knee (principal); Z68.42 Body mass index [BMI] 45.0-49.9, adult; J44.9 Chronic obstructive pulmonary disease, unspecified; I10 Essential (primary) hypertension; E78.00 Pure hypercholesterolemia, unspecified; E66.9 Obesity, unspecified; Z96.651 Presence of right artificial knee joint; Z79.82 Long term (current) use of aspirin; Z79.891 Long term (current) use of opiate analgesic; Z79.899 Other long term (current) drug therapy
CPT/HCPCS: 01402; 36415; 80048; 84132; 85027; 88305; 88311; 94660; 94799; C1713; C1776; J1741; J2250; J2310; J2405; J2704; J3010; J3370; J3490; J7050; J7060; J7120

== ENCOUNTER → 2019-12-13 | Outpatient (CLI) | payer MEDICARE ==
--- NOTE | 2019-12-13 15:30 | RADIOLOGY REPORT (SQ) ---
EXAM DESCRIPTION: CHEST PA/LATERAL IMAGES COMPLETED DATE/TIME: 12/13/2019 2:14 pm REASON FOR STUDY: BRONCHITIS, NOT SPECIFIED ACUTE OR CHRONIC COMPARISON: 02/14/2019 EXAM PARAMETERS: NUMBER OF VIEWS: two views TECHNIQUE: Digital Frontal and Lateral radiographic views of the chest acquired. RADIATION DOSE: NA LIMITATIONS: none FINDINGS: LUNGS AND PLEURA: No opacities, masses or pneumothorax. No pleural effusion. MEDIASTINUM AND HILAR STRUCTURES: No masses or contour abnormalities. HEART AND VASCULAR STRUCTURES: Heart normal size. No evidence for failure. BONES: No acute findings. HARDWARE: None in the chest. OTHER: No other significant finding. IMPRESSION: NO SIGNIFICANT RADIOGRAPHIC FINDING IN THE CHEST. TECHNICAL DOCUMENTATION: JOB ID: [id number] [employer]- All Rights Reserved Reading location - IP/workstation name: [email or web address]
== END ==
LOC: OD 13:46
PROVIDERS: ATTEND Family Medicine Geriatric Medicine
DX: J20.9 Acute bronchitis, unspecified (principal)
CPT/HCPCS: 71046

== ENCOUNTER → 2019-12-26 | Outpatient (CLI) | payer MEDICARE ==
--- NOTE | 2019-12-26 15:05 | RADIOLOGY REPORT (SQ) ---
EXAM DESCRIPTION: CHEST PA/LATERAL IMAGES COMPLETED DATE/TIME: 12/26/2019 2:35 pm REASON FOR STUDY: CHRONIC OBSTRUCTIVE PULMONARY DISEASE, UNSPECIFIED COMPARISON: 12/13/2019 EXAM PARAMETERS: NUMBER OF VIEWS: two views TECHNIQUE: Digital Frontal and Lateral radiographic views of the chest acquired. RADIATION DOSE: NA LIMITATIONS: none FINDINGS: LUNGS AND PLEURA: No opacities, masses or pneumothorax. No pleural effusion. MEDIASTINUM AND HILAR STRUCTURES: No masses or contour abnormalities. HEART AND VASCULAR STRUCTURES: The heart size is borderline. There is no all pulmonary edema. BONES: No acute findings. HARDWARE: None in the chest. OTHER: No other significant finding. IMPRESSION: Borderline heart size without pulmonary edema. TECHNICAL DOCUMENTATION: JOB ID: [id number] [employer]- All Rights Reserved Reading location - IP/workstation name: [email or web address]
== END ==
LOC: OD 12:13
PROVIDERS: ATTEND Family Medicine Geriatric Medicine
DX: J44.9 Chronic obstructive pulmonary disease, unspecified (principal)
CPT/HCPCS: 71046